=== PATIENT | female | born 1980 | race Caucasian/White ===

== ENCOUNTER 2018-04-16 20:34 | Emergency (ER) | payer MEDICAID ==
[~2018-04-16] VITALS: Ht 160 cm; Wt 75.4 kg
[2018-04-16 20:44] VITALS: Ht 160 cm; Wt 75.4 kg
[2018-04-16] MEDS ORDERED: KETOROLAC 15 MG INJ IV STA (21:14)
[2018-04-16] MEDS ORDERED: SOD CHLORIDE 0.9% 1,000 ML IV STA (21:14)
[2018-04-16] MEDS ORDERED: ONDANSETRON 4 MG INJ IV STA (21:14)
[2018-04-16] MEDS ORDERED: CEFTRIAXONE 1 GM/50 ML (PMX) 50 ML IVPB ONE (22:30)
--- NOTE | 2018-04-16 22:42 | ERD ---
ER Documentation Chief Complaint Chief Complaint R flank pain X 2 days HPI This is a 38-year-old female with no significant past medical history aside from a previous cholecystectomy who is presenting with 2-3 days of dysuria and uri nary frequency and urinary urgency with occasional right-sided flank pain. The patient does also endorse occasional fever and chills over the last 1-2 days as well. She has had nausea but no vomiting. She denies any abdominal pain. She has not had any constipation or diarrhea. She has not had any black or bloody or tarry stools. The patient has had no headache or vision changes. The patient does not endorse neck or back pain. The patient denies lightheadedness or dizziness. The patient has had no chest pain or trouble breathing. The patient has had no focal deficits. The patient has had no weakness or numbness or tingling to the face or extremities. ROS All systems reviewed and are negative except as per history of present illness. Medications Home Meds Active Scripts Ondansetron Hcl* (Zofran*) 8 Mg Tablet, 8 MG PO Q6H PRN for NAUSEA AND OR VOMITING, #20 TAB Prov:KALPANA BERKOWITZ MD 04/16/18 Ciprofloxacin Hcl* (Ciprofloxacin Hcl*) 500 Mg Tablet, 500 MG PO BID for 10 Days, TAB Prov:KALPANA BERKOWITZ MD 04/16/18 Allergies Allergies: Coded Allergies: No Known Allergy (Verified Allergy, Unknown, 03/04/07) PMhx/Soc History of Surgery: No Anesthesia Reaction: No Hx Neurological Disorder: No Hx Respiratory Disorders: No Hx Cardiac Disorders: No Hx Psychiatric Problems: No Hx Miscellaneous Medical Probl: Yes (GALLBLADDER REMOVED) Hx Alcohol Use: No Hx Substance Use: No Hx Tobacco Use: No Smoking Status: Never smoker FmHx Family History: No diabetes Physical Exam Vitals Vital Signs Date Temp Pulse Resp B/P (MAP) Pulse Ox O2 O2 Flow FiO2 Time Delivery Rate 04/16/18 98.6 89 18 118/75 99 Room Air 23:29 (89) 04/16/18 98.5 90 12 114/72 100 22:10 (86) 04/16/18 98.5 90 17 122/95 100 21:09 (104) 04/16/18 100.1 83 18 132/63 99 20:44 (86) Physical Exam Const: No apparent distress, well-developed, well-nourished Head: Normocephalic, Atraumatic Eyes: Normal Conjunctiva. Extraocular movements intact. Pupils equal, round and reactive to light ENT: Normal External Ears, Nose and Mouth. Neck: Full range of motion. No meningismus. Resp: Clear to auscultation bilaterally, No wheezes, rales or rhonchi Cardio: Regular rate and rhythm. No murmurs, rubs or gallops Abd: Soft, non distended. Suprapubic tenderness. Normal bowel sounds Skin: No petechiae or rashes Back: No midline tenderness. Mild right-sided CVA tenderness Ext: No cyanosis, or edema Neur: Awake and alert, oriented 4. Cranial nerves intact. No facial droop. Normal strength, sensation and coordination. Psych: Normal Mood and Affect Result Diagram: 04/16/18210404/16/182104 Results 24 hrs Laboratory Tests Test 04/16/18 21:05 04/16/18 21:15 04/16/18 21:24 White Blood Count 10.7 10^3/ul Red Blood Count 4.27 10^6/ul Hemoglobin 12.3 g/dl Hematocrit 37.9 % Mean Corpuscular Volume 88.8 fl Mean Corpuscular Hemoglobin 28.8 pg Mean Corpuscular 32.5 g/dl Hemoglobin Concent Red Cell Distribution Width 12.6 % Platelet Count 338 10^3/UL Mean Platelet Volume 9.6 fl Immature Granulocytes % 0.800 % Neutrophils % 62.9 % Lymphocytes % 26.7 % Monocytes % 8.1 % Eosinophils % 1.1 % Basophils % 0.4 % Nucleated Red Blood Cells % 0.0 /100WBC Immature Granulocytes # 0.090 10^3/ul Neutrophils # 6.7 10^3/ul Lymphocytes # 2.9 10^3/ul Monocytes # 0.9 10^3/ul Eosinophils # 0.1 10^3/ul Basophils # 0.0 10^3/ul Nucleated Red Blood Cells # 0.0 10^3/ul Sodium Level 142 mmol/L Potassium Level 3.7 mmol/L Chloride Level 103 mmol/L Carbon Dioxide Level 30 mmol/L Anion Gap 9 Blood Urea Nitrogen 11 mg/dl Creatinine 0.73 mg/dl Est Glomerular Filtrat > 60 mL/min Rate mL/min Glucose Level 112 mg/dl Calcium Level 9.2 mg/dl Total Bilirubin 0.2 mg/dl Direct Bilirubin 0.00 mg/dl Indirect Bilirubin 0.2 mg/dl Aspartate Amino Transf (AST/SGOT) 68 IU/L Alanine 82 IU/L Aminotransferase (ALT/SGPT) Alkaline Phosphatase 138 IU/L Total Protein 8.2 g/dl Albumin 4.2 g/dl Globulin 4.00 g/dl Albumin/Globulin Ratio 1.05 Lipase 33 U/L Urine Color YELLOW Urine Clarity CLOUDY Urine pH 5.0 Urine Specific [place] 1.015 Urine Ketones NEGATIVE mg/dL Urine Nitrite POSITIVE mg/dL Urine Bilirubin NEGATIVE mg/dL Urine Urobilinogen 1+ mg/dL Urine Leukocyte Esterase 3+ [place]/ul Urine Microscopic RBC 6 /HPF Urine Microscopic WBC > 182 /HPF Urine Amorphous Crystals FEW /HPF Urine Bacteria FEW /HPF Urine Hemoglobin 2+ mg/dL Urine Glucose NEGATIVE mg/dL Urine Total Protein 1+ mg/dl POC Beta HCG, Qualitative NEGATIVE Current Medications Medications Dose Sig/Rand Start Time Status Last (Trade) Ordered Route PRN Stop Time Admin Dose Reason Admin Sodium 1,000 ml @ Q1H STAT 04/16/18 DC 04/16/18 Chloride 1,000 mls/hr IV 21:14 04/16/18 21:20 22:13 Ondansetron 4 mg ONCE STAT 04/16/18 DC 04/16/18 HCl (Zofran IV 21:14 04/16/18 21:20 Inj) 21:15 Ketorolac 15 mg ONCE STAT 04/16/18 DC 04/16/18 Tromethamine IV 21:14 04/16/18 21:20 (Toradol) 21:15 Ceftriaxone 50 ml @ ONCE ONCE 04/16/18 DC 04/16/18 Sodium 100 mls/hr IVPB 22:30 04/16/18 22:23 22:59 Procedures/MDM MDM The patient's presentation warrants further investigation. Previous medical records, if available, were reviewed. LABS The patient's laboratory testing was obtained and reviewed. No emergent treatment was required unless described below. CBC: No E/o systemic infection or severe anemia or thrombocytopenia Chemistry: No E/o severe acidosis or alkalosis or renal failure or diabetic ketoacidosis. Transaminitis, likely reactive. Lipase: No E/o pancreatitis Urine: E/o acute infection without hematuria TREATMENT/DISPOSITION The patient presents with flank pain and dysuria. The patient's temperature was elevated. The patient's urinalysis indicates a urinary tract infection. Given the constellation of symptoms, I am concerned about pyelonephritis. The patient was given a dose of Rocephin IV in the emergency department. The patient was also treated with IV fluids, Zofran and Toradol with significant improvement of her pain. The patient's temperature resolved. The patient does not have evidence of sepsis. I do feel that the patient is a good candidate for outpatient management. The patient does not have significant hematuria. I have low suspicion for nephrolithiasis. The patient does not have any evidence of peritonitis. The patient does not have clinical symptoms concerning for mesenteric ischemia or ischemic colitis. The patient does not have right upper quadrant tenderness, and I have low suspicion for gallstones, cholecystitis or biliary colic. The patient does not have any epigastric pain. I have low suspicion for gastritis, PUD or GERD. The patient does not have left upper quadrant tenderness. I have low suspicion for pancreatitis. The patient does not have any right lower quadrant tenderness, or periumbilical tenderness. I have low suspicion for appendicitis. The patient does not have any left lower quadrant tenderness, and I have low suspicion for diverticulosis or diverticulitis. The patient does not have any palpable pulsatile mass or severe abdominal pain radiating to the back. I have low suspicion for aortic aneurysm, dissection or rupture. Upon reevaluation of the patient, symptoms have improved. No emergent diagnoses were identified. At this time, I feel that the patient stable for discharge. Th e patient was instructed to follow-up with a primary care physician in 1-3 days. The patient will be given strict precautions with which to return to the emergency department. Prescriptions: Ciprofloxacin, Zofran The patient's blood pressure was elevated at greater than 120/80 while in the emergency department. The patient was otherwise stable with no evidence of hypertensive urgency or emergency. The patient does not require admission for blood pressure control. I have discussed with the patient the risks of hypertension. I have instructed the patient to return to the ER for any new or w orsening symptoms including chest pain, shortness of breath, headache, blurred vision, confusion, nausea, vomiting or LOC. I have advised the patient to follow up with the primary care physician for outpatient monitoring and treatment for hypertension in 1-3 days. Disclaimer: Inadvertent spelling and grammatical errors are likely due to EHR/dictation software use and do not reflect on the overall quality of patient care. Note that the electronic time recorded on this note does not necessarily r eflect the actual time of the patient encounter. Departure Diagnosis: Primary Impression: Pyelonephritis Additional Impressions: Urinary tract infection Urinary tract infection type: acute cystitis Hematuria presence: with hematuria Qualified Codes: N30.01 - Acute cystitis with hematuria Flank pain Transaminitis Condition: Stable KALPANA BERKOWITZ MD Apr 16, 2018 22:42
[2018-04-16] MEDS ORDERED: ONDA8TAB9 PO (22:56)
[2018-04-16] MEDS ORDERED: CIPR500T4 PO (22:56)
[2018-04-16 23:29] VITALS: BP 118/75; PULSE 89; RESP 18
== END 2018-04-16 23:31 | disposition home or self-care (01) ==
LOC: E/R 20:34
DX: N12 Tubulo-interstitial nephritis, not specified as acute or chronic (principal); N30.01 Acute cystitis with hematuria; R74.0 Nonspecific elevation of levels of transaminase and lactic acid dehydrogenase [LDH]
CPT/HCPCS: 36415; 80053; 81001; 81025; 83690; 85025; 96374; 96375; J0696; J1885; J2405; J7030; Z7502